=== PATIENT | female | born 1950 | race Caucasian/White ===

== ENCOUNTER → 2016-10-09 | Outpatient (CLI) | payer SELFPAY ==
--- NOTE | 2016-10-09 14:41 | CT ---
CORONARY CALCIUM SCORE CLINICAL INDICATION: Screening. COMPARISON: None PROCEDURE: Gated images of the coronary arteries. Coronary artery calcium scoring was performed. FINDINGS: Coronary calcium scoring - 78 LM: 47 LAD: 0 LCX: 0 RCA: 31 IMPRESSION: 1. Calcium score of 78. This places the patient at approximately the 50th-75th percentile for female s of equivalent age. Calcium 100 Reported By:
== END ==
LOC: RAD 11:38
PROVIDERS: ATTEND Nurse Practitioner
DX: Z13.6 Encounter for screening for cardiovascular disorders (principal)